=== PATIENT | female | born 1945 | race Caucasian/White ===

== ENCOUNTER → 2021-03-31 | Outpatient (CLI) | payer OTHER, MEDICARE | LOC: HYPER 16:52 | PROVIDERS: ATTEND Emergency Medicine | DX: S80.11XA Contusion of right lower leg, initial encounter (principal); I48.20 Chronic atrial fibrillation, unspecified; F41.9 Anxiety disorder, unspecified; Z79.02 Long term (current) use of antithrombotics/antiplatelets; Z79.01 Long term (current) use of anticoagulants; Z79.899 Other long term (current) drug therapy; W22.8XXA Striking against or struck by other objects, initial encounter; Y93.B9 Activity, other involving muscle strengthening exercises; Y92.89 Other specified places as the place of occurrence of the external cause; Y99.8 Other external cause status ==

== ENCOUNTER → 2021-04-14 | Outpatient (CLI) | payer OTHER, MEDICARE | LOC: HYPER 10:18 | PROVIDERS: ATTEND Emergency Medicine Emergency Medical Services | DX: S80.11XD Contusion of right lower leg, subsequent encounter (principal); S01.81XD Laceration without foreign body of other part of head, subsequent encounter; I48.20 Chronic atrial fibrillation, unspecified; K21.9 Gastro-esophageal reflux disease without esophagitis; F41.9 Anxiety disorder, unspecified; Z79.02 Long term (current) use of antithrombotics/antiplatelets; Z79.01 Long term (current) use of anticoagulants; W22.8XXD Striking against or struck by other objects, subsequent encounter ==

== ENCOUNTER → 2021-04-28 | Outpatient (CLI) | payer OTHER, MEDICARE | LOC: HYPER 08:11 | PROVIDERS: ATTEND Emergency Medicine | DX: S80.11XD Contusion of right lower leg, subsequent encounter (principal); S01.81XD Laceration without foreign body of other part of head, subsequent encounter; I48.20 Chronic atrial fibrillation, unspecified; K21.9 Gastro-esophageal reflux disease without esophagitis; F41.9 Anxiety disorder, unspecified; Z79.02 Long term (current) use of antithrombotics/antiplatelets; Z79.01 Long term (current) use of anticoagulants; X58.XXXD Exposure to other specified factors, subsequent encounter; W22.8XXD Striking against or struck by other objects, subsequent encounter ==

== ENCOUNTER → 2021-05-12 | Outpatient (CLI) | payer OTHER, MEDICARE | LOC: HYPER 07:43 | PROVIDERS: ATTEND Emergency Medicine | DX: S80.11XD Contusion of right lower leg, subsequent encounter (principal); S81.811A Laceration without foreign body, right lower leg, initial encounter; S01.81XD Laceration without foreign body of other part of head, subsequent encounter; I48.20 Chronic atrial fibrillation, unspecified; K21.9 Gastro-esophageal reflux disease without esophagitis; F41.9 Anxiety disorder, unspecified; Z79.02 Long term (current) use of antithrombotics/antiplatelets; Z79.01 Long term (current) use of anticoagulants; X58.XXXD Exposure to other specified factors, subsequent encounter; W22.8XXD Striking against or struck by other objects, subsequent encounter; X58.XXXA Exposure to other specified factors, initial encounter; Y93.89 Activity, other specified; Y92.89 Other specified places as the place of occurrence of the external cause; Y99.8 Other external cause status ==

== ENCOUNTER → 2021-05-26 | Outpatient (CLI) | payer OTHER, MEDICARE | LOC: HYPER 07:32 | PROVIDERS: ATTEND Emergency Medicine Emergency Medical Services | DX: S80.11XD Contusion of right lower leg, subsequent encounter (principal); S01.81XD Laceration without foreign body of other part of head, subsequent encounter; I48.20 Chronic atrial fibrillation, unspecified; K21.9 Gastro-esophageal reflux disease without esophagitis; F41.9 Anxiety disorder, unspecified; Z79.02 Long term (current) use of antithrombotics/antiplatelets; Z79.01 Long term (current) use of anticoagulants; W22.8XXD Striking against or struck by other objects, subsequent encounter ==